=== PATIENT | female | born 1935 | race Caucasian/White ===

== ENCOUNTER → 2017-01-27 | Day surgery (SDC) | payer MEDICARE, OTHER ==
[~2017-01-27] MED LIST: ACETAZOLAMIDE 500 MG CER ONE; FENTANYL 100MCG/2ML SOL ONE; LIDOCAINE HCL 1% MPF SOL ONE; MIDAZOLAM 2 MG/2 ML SOL ONE; POVIDONE IODINE 5% SOL ONE
[2017-01-27 06:19] VITALS: PULSE 64
[2017-01-27] MEDS: PROPARACAINE HCL 0.5% OPHTHALMIC SOL ONE ×3 (06:25→07:39)
[2017-01-27] MEDS: CYCLOPENTOLATE 1% SOL ONE ×2 (06:26→06:41)
[2017-01-27] MEDS: PHENYLEPHRINE HCL 10% OPHTHAL SOL ONE ×2 (06:26→06:40)
[2017-01-27] MEDS: KETOROLAC 0.5% OPTH 60 DROP SOL ONE ×2 (06:27→06:42)
[2017-01-27] MEDS: BSS 500 ML 500 ML IR ONE ×2 (07:35→07:49)
[2017-01-27 08:22] VITALS: BP 120/71; RESP 20; TEMP 96.9; O2SAT 93
== END | disposition home or self-care (01) | DRG 125 ==
LOC: SURG 06:00
PROVIDERS: ATTEND Ophthalmology
DX: H25.9 Unspecified age-related cataract (principal)
CPT/HCPCS: J2250; J3010; J2001

== ENCOUNTER 2017-02-24 09:03 | Day surgery (SDC) | payer MEDICARE, OTHER ==
[2017-02-24] MEDS ORDERED: CYCLOPENTOLATE 1% SOL ONE (09:09)
[2017-02-24] MEDS ORDERED: PHENYLEPHRINE HCL 10% OPHTHAL SOL ONE (09:09)
[2017-02-24] MEDS ORDERED: ACETAZOLAMIDE 500 MG CER ONE (09:09)
[2017-02-24] MEDS ORDERED: PROPARACAINE HCL 0.5% OPHTHALMIC SOL ONE (09:09)
[2017-02-24] MEDS ORDERED: KETOROLAC 0.5% OPTH 60 DROP SOL ONE (09:09)
[2017-02-24 09:23] VITALS: RESP 20; O2SAT 94
[2017-02-24] MEDS ORDERED: ACETAZOLAMIDE 500 MG CER PO ONE (09:26)
[2017-02-24] MEDS: PROPARACAINE HCL 0.5% OPHTHALMIC SOL RIGHTEYE ONE ×2 (09:29→10:31)
[2017-02-24] MEDS ORDERED: CYCLOPENTOLATE 1% SOL RIGHTEYE ONE ×2 (09:29→09:42)
[2017-02-24] MEDS ORDERED: PHENYLEPHRINE HCL 10% OPHTHAL SOL RIGHTEYE ONE ×2 (09:29→09:41)
[2017-02-24] MEDS ORDERED: KETOROLAC 0.5% OPTH 60 DROP SOL RIGHTEYE ONE ×2 (09:29→09:42)
[2017-02-24] MEDS ORDERED: PROPARACAINE HCL 0.5% OPHTHALMIC SOL RIGHTEYE ONE (09:41)
[2017-02-24] MEDS ORDERED: LIDOCAINE HCL 1% MPF SOL ONE (10:25)
[2017-02-24] MEDS ORDERED: POVIDONE IODINE 5% SOL ONE (10:25)
[2017-02-24] MEDS ORDERED: BSS 500 ML 500 ML IR ONE (10:25)
[2017-02-24 11:11] VITALS: BP 144/84; PULSE 86; TEMP 97.1
== END 2017-02-24 11:30 | disposition home or self-care (01) | DRG 125 ==
LOC: SURG 09:03
PROVIDERS: ATTEND Ophthalmology
DX: H25.9 Unspecified age-related cataract (principal)
CPT/HCPCS: J2250; J2001

== ENCOUNTER 2018-01-08 05:00 | Emergency (ER) | payer MEDICARE, OTHER ==
[2018-01-08 05:08] VITALS: RESP 20; TEMP 97.4; O2SAT 98
[2018-01-08] MEDS ORDERED: AZITHROMYCIN 250 MG TAB PO ONE (05:32)
[2018-01-08] MEDS ORDERED: AZITHROMYCIN 250 MG TAB ONE (05:39)
[2018-01-08 06:10] VITALS: BP 134/75; PULSE 79
== END 2018-01-08 05:55 | disposition home or self-care (01) | DRG 203 ==
LOC: ED 05:00
DX: J20.9 Acute bronchitis, unspecified (principal)
CPT/HCPCS: 99282; 99283; A9270-GY

== ENCOUNTER 2018-01-10 03:35 | Inpatient (IN) | payer MEDICARE, OTHER ==
[2018-01-10 04:16] LABS: BASOPHILS % (AUTO) 1 % (0-3); EOSINOPHILS % (AUTO) 1 % (0-9); HEMATOCRIT 44 % (35-47); HEMOGLOBIN 14.3 gm/dl (12.0-15.5); LYMPHOCYTES % (AUTO) 19.8 % (10-50); MEAN CORPUSCULAR HEMOGLOBIN 29.9 pg (27.0-32.0); MEAN CORPUSCULAR HGB CONC 32.2 gm/dl (32.0-36.0); MEAN CORPUSCULAR VOLUME 93 fL (81-99); MONOCYTES % (AUTO) 9.4 % (0-12); NEUTROPHILS % (AUTO) 68.8 % (37-80)
[2018-01-10 04:32] LABS: ALBUMIN 3.2 gm/dl (3.4-5.0); BILIRUBIN,TOTAL 0.4 mg/dl (0.2-1.0); CALCIUM 9.2 mg/dl (8.5-10.1); CARBON DIOXIDE 28.5 mEq/L (21-32); CREATININE 1.53 mg/dl (0.60-1.00); POTASSIUM 3.9 mMol/L (3.5-5.1); TOTAL PROTEIN 7.7 gm/dl (6.4-8.2)
[2018-01-10 04:35] LABS: INR 2.63 (0.86-1.12)
[2018-01-10 04:49] LABS: APPEARANCE,URINE Clear; BILIRUBIN,URINE NEGATIVE (NEGATIVE); COLOR,URINE Yellow; GLUCOSE, URINE (UA) NEGATIVE (NEGATIVE); KETONES,URINE NEGATIVE (NEGATIVE); LEUKOCYTE ESTERASE ,URINE NEGATIVE (NEGATIVE); NITRATE,URINE NEGATIVE (NEGATIVE); OCCULT BLOOD,URINE 1+ (NEG-TRACE); PH,URINE 5.5; UROBILINOGEN,URINE 0.2 (0.2-1.0 EU)
[2018-01-10 05:01] LABS: BACTERIA NEGATIVE (< 1+); CRYSTALS NEGATIVE (0-3 AVE/HPF); RBC,URINE 0-2 (0-3AV/HPF); WBC,URINE 0-2 (0-5AV/HPF)
[2018-01-10] MEDS ORDERED: WITCH HAZEL 1 EA PAD TOP PRN (05:44)
[2018-01-10] MEDS ORDERED: ALBUTEROL HFA 60 PUFF/INHALER INH PRN (05:44)
[2018-01-10] MEDS ORDERED: HYDROCORTISONE 1% CREAM 1 APPL CRE TOP PRN (05:44)
[2018-01-10] MEDS ORDERED: DILTIAZEM HYDROCHLORIDE 30 MG PO PRN (05:44)
[2018-01-10] MEDS ORDERED: DILTIAZEM ER 120 MG C24 ONE (07:20)
[2018-01-10] MEDS: LEVOTHYROXINE 0.025MG 0.025 MG TAB PO SCH (07:45)
[2018-01-10] MEDS ORDERED: DILTIAZEM HYDROCHLORIDE 60 MG TAB PO ONE (08:45)
[2018-01-10] MEDS ORDERED: TRIAMCINOLONE 0.1% CREAM CRE TOP PRN (08:45)
[2018-01-10] MEDS ORDERED: UBIDECARENONE 100 MG CAPSULE PO SCH (09:00)
[2018-01-10] MEDS ORDERED: DILTIAZEM XR 180 MG C24 PO SCH (09:00)
[2018-01-10] MEDS ORDERED: AZITHROMYCIN 250 MG TAB PO SCH (09:00)
[2018-01-10] MEDS ORDERED: BIOTIN 1 MG PO SCH (09:00)
[2018-01-10] MEDS ORDERED: DILTIAZEM ER 120 MG C24 PO SCH (09:00)
[2018-01-10] MEDS: FUROSEMIDE 20 MG TAB PO SCH (09:07)
[2018-01-10] MEDS: LOSARTAN POTASSIUM 50 MG TAB PO SCH (09:07)
[2018-01-10] MEDS: ASPIRIN EC 81 MG PO SCH (09:07)
[2018-01-10] MEDS: DILTIAZEM XR 180 MG C24 PO SCH (09:19)
[2018-01-10] MEDS ORDERED: WARFARIN SODIUM 5 MG TAB PO SCH (18:00)
[2018-01-10] MEDS ORDERED: METOPROLOL SUCCINATE 50 MG TER PO SCH (21:00)
[2018-01-10] MEDS ORDERED: PRAVASTATIN SODIUM 20 MG TAB PO SCH (21:00)
[2018-01-10] MEDS ORDERED: SERTRALINE HYDROCHLORIDE 50 MG TAB PO SCH (21:00)
[2018-01-11] MEDS ORDERED: ACETAMINOPHEN 325 MG PO PRN (00:40)
[2018-01-11] MEDS: LEVOTHYROXINE 0.025MG 0.025 MG TAB PO SCH (06:50)
[2018-01-11 07:12] VITALS: RESP 18; TEMP 97.6
[2018-01-11 08:20] VITALS: BP 128/87; PULSE 82
[2018-01-11 08:59] VITALS: O2SAT 90
[2018-01-11] MEDS: FUROSEMIDE 20 MG TAB PO SCH (09:02)
[2018-01-11] MEDS: LOSARTAN POTASSIUM 50 MG TAB PO SCH (09:02)
[2018-01-11] MEDS: ASPIRIN EC 81 MG PO SCH (09:02)
[2018-01-11] MEDS: DILTIAZEM XR 180 MG C24 PO SCH (09:03)
[2018-01-11] MEDS ORDERED: DILTIAZEM ER 120 MG C24 PO SCH (09:15)
[2018-01-11] MEDS ORDERED: WARFARIN SODIUM 2.5 MG TAB PO SCH (18:00)
== END 2018-01-11 14:05 | disposition home or self-care (01) | DRG 149 ==
LOC: ED 03:35 → ACUTE CARE 05:34 → OBSVTOIN 05:34
PROVIDERS: ADMIT Family Medicine; ATTEND Family Medicine
PROC: F02Z2ZZ Feeding/Eating Assessment (ICD-10-PCS; principal; 2018-01-10)
PROC: F02Z3ZZ Grooming/Personal Hygiene Assessment (ICD-10-PCS; 2018-01-10)
PROC: F01L0FZ Muscle Performance Assessment of Musculoskeletal System - Lower Back / Lower Extremity using Assistive, Adaptive, Supportive or Protective Equipment (ICD-10-PCS; 2018-01-10)
DX: R42 Dizziness and giddiness (principal); R19.7 Diarrhea, unspecified; I10 Essential (primary) hypertension; Z79.01 Long term (current) use of anticoagulants; I48.91 Unspecified atrial fibrillation; E78.5 Hyperlipidemia, unspecified; R00.0 Tachycardia, unspecified; F41.1 Generalized anxiety disorder
CPT/HCPCS: 36415; 70450; 71045; 80053; 81001; 83880; 84484; 85025; 85610; 93005; 93012; 99222; 99285; A9270-GY

== ENCOUNTER 2018-05-21 15:53 | Observation (INO) | payer MEDICARE, OTHER ==
[2018-05-21] MEDS ORDERED: MECLIZINE HYDROCHLORIDE 12.5 MG TAB PO ONE (16:17)
[2018-05-21] MEDS ORDERED: MECLIZINE HYDROCHLORIDE 12.5 MG TAB ONE (16:24)
[2018-05-21 16:59] LABS: BASOPHILS % (AUTO) 0 % (0-3); EOSINOPHILS % (AUTO) 0 % (0-9); HEMATOCRIT 48 % (35-47); HEMOGLOBIN 14.7 gm/dl (12.0-15.5); LYMPHOCYTES % (AUTO) 11.3 % (10-50); MEAN CORPUSCULAR HEMOGLOBIN 29.2 pg (27.0-32.0); MEAN CORPUSCULAR VOLUME 94 fL (81-99); MONOCYTES % (AUTO) 6.6 % (0-12); NEUTROPHILS % (AUTO) 81.2 % (37-80)
[2018-05-21 17:07] LABS: APPEARANCE,URINE Clear; BILIRUBIN,URINE NEGATIVE (NEGATIVE); COLOR,URINE Light yellow; GLUCOSE, URINE (UA) NEGATIVE (NEGATIVE); KETONES,URINE NEGATIVE (NEGATIVE); LEUKOCYTE ESTERASE ,URINE NEGATIVE (NEGATIVE); NITRATE,URINE NEGATIVE (NEGATIVE); OCCULT BLOOD,URINE TRACE LYSED (NEG-TRACE); PH,URINE 6.5; UROBILINOGEN,URINE 0.2 (0.2-1.0 EU)
[2018-05-21 17:09] LABS: INR 2.55 (0.86-1.12)
[2018-05-21 17:15] LABS: BACTERIA TRACE (< 1+); CRYSTALS NEGATIVE (0-3 AVE/HPF); EPITHELIAL CELLS 0-1 (SQUAMOUS); RBC,URINE 0-1 (0-3AV/HPF); WBC,URINE 0-1 (0-5AV/HPF)
[2018-05-21 17:17] LABS: BLOOD UREA NITROGEN 22 mg/dl (7-18); CALCIUM 9.6 mg/dl (8.5-10.1); CARBON DIOXIDE 30.3 mEq/L (21-32); CHLORIDE 100 mMol/L (98-107); CREATININE 1.49 mg/dl (0.60-1.00); GLUCOSE 154 mg/dl (74-106); SODIUM 138 mMol/L (136-145); TROP I < 0.017 ng/ml (0.000-0.056)
[2018-05-21 23:04] VITALS: O2SAT 96
[2018-05-21] MEDS ORDERED: DILTIAZEM HYDROCHLORIDE 30 MG PO PRN (23:05)
[2018-05-21] MEDS ORDERED: WARFARIN SODIUM 2.5 MG TAB PO SCH (23:15)
[2018-05-22] MEDS ORDERED: LEVOTHYROXINE SODIUM 50 MCG TAB ONE (06:26)
[2018-05-22] MEDS ORDERED: LEVOTHYROXINE 0.025MG 0.025 MG TAB PO SCH (07:00)
[2018-05-22 08:07] VITALS: BP 129/86; PULSE 71; RESP 16; TEMP 97.5
[2018-05-22] MEDS ORDERED: DILTIAZEM 180 MG PO SCH (09:00)
[2018-05-22] MEDS ORDERED: ASPIRIN EC 81 MG PO SCH (09:00)
[2018-05-22] MEDS ORDERED: LOSARTAN POTASSIUM 50 MG TAB PO SCH ×2 (09:00)
[2018-05-22] MEDS ORDERED: FUROSEMIDE 20 MG TAB PO SCH (09:00)
[2018-05-22] MEDS ORDERED: DILTIAZEM XR 180 MG C24 PO SCH (09:15)
[2018-05-22] MEDS ORDERED: WARFARIN SODIUM 2.5 MG TAB PO SCH (18:00)
[2018-05-22] MEDS ORDERED: METOPROLOL SUCCINATE 50 MG ER TAB PO SCH (21:00)
[2018-05-22] MEDS ORDERED: DILTIAZEM ER 120 MG C24 PO SCH (21:00)
[2018-05-22] MEDS ORDERED: SERTRALINE HYDROCHLORIDE 50 MG TAB PO SCH (21:00)
[2018-05-22] MEDS ORDERED: PRAVASTATIN SODIUM 20 MG TAB PO SCH (21:00)
[2018-05-23] MEDS ORDERED: LEVOTHYROXINE SODIUM 50 MCG TAB PO SCH (07:00)
[2018-05-23] MEDS ORDERED: WARFARIN SODIUM 5 MG TAB PO SCH (18:00)
== END 2018-05-22 16:15 | disposition home health service (06) | DRG 149 ==
LOC: ED 15:53 → ACUTE CARE 22:05
PROVIDERS: ADMIT Emergency Medicine; ATTEND Emergency Medicine
DX: R42 Dizziness and giddiness (principal); Z79.01 Long term (current) use of anticoagulants
CPT/HCPCS: 36415; 80048; 81001; 84484; 85025; 85610; 93005; 99218; 99283; A9270-GY